=== PATIENT | male | born 1990 | race Caucasian/White ===

== ENCOUNTER 2019-04-07 12:07 | Emergency (ER) | payer MEDICAID, SELFPAY ==
[2019-04-07 12:11] VITALS: BP 134/82; PULSE 102; RESP 16; TEMP 36.8; O2SAT 98
--- NOTE | 2019-04-07 12:11 | ED.GENADUL_ITS ---
Discharge Plan Disposition Patient Disposition: HOME Condition: Stable Discharge Details Chief Complaint: Laceration Clinical Impression: Finger laceration Primary Care Provider: Taqueria Nieto ED Provider: Roseanne Peña Home Meds and New Rx's Prescriptions: New doxycycline hyclate 100 mg tablet 100 mg PO BID 7 Days Qty: 14 RF: 0 Discharge Instructions Instructions: Finger Laceration (ED) Additional Instructions: Take the antibiotics until finished. Be sure to keep wound clean and dry. Cover wound if risk of contamination, otherwise keep open to air to allow wound edges to dry and heal. Return to the emergency department in 7 days for suture removal. Discharge Data Discharge Physician: Roseanne Peña Medical Decision Making 1215 -- 28-year-old male who states he was cutting parts of a tree with a small tree saw when he states he slipped and cut his right second finger with the sharp edge of the saw. He denies any fall or any other injury. Last tetanus 2018. There is a 2 cm flap laceration as well as an additional 1 cm laceration above this on the medial aspect of the right second finger at the PIP joint. There is no pulsatile bleeding, obvious foreign body or fracture. Neurovascularly intact. We will irrigate well and sent for x-ray to rule out foreign body and close with sutures. 1330 --x-ray negative. Wound closed with 7 nylon 4 sutures and covered with topical antibiotic ointment, finger to gauze and finger spent was placed. Due to risk of dirty wound, will send with antibiotics. He is allergic to amoxicillin which causes rash. He is advised on the importance of good wound care and to return to the in 7 days for suture removal. Medical Records Medical records reviewed: Yes I reviewed the patient's medical records. Imaging Data Radiologic Study: Radiologist's impression: XR FINGER RT INDEX CLINICAL HISTORY: s/p chainsaw to R PIP joint, 2cm lac, r/o fx/fb TECHNIQUE: COMPARISON: No exams were available for comparison FINDINGS: Four views were obtained. There is a soft tissue defect at the level of the PIP joint of the index finger. There is no associated fracture. IMPRESSION: HPI General Mode of arrival: ambulatory . Date/Time Provider Initiated Documentation: 04/07/19 12:07 . Limitations to Documentation: no limitations . Information obtained by: patient . History of Present Illness described as moderate, Quality is described as sharp, and is localized to the upper extremity (R 2nd finger laceration). and it has been constant. No relieving factors improve symptom(s), Movement worsens symptoms . Patient notes no other symptoms.. Patient did receive the following treatments prior to arrival, none Related Data Home Medications Medication Instructions Recorded Confirmed doxycycline hyclate 100 mg PO BID 7 Days #14 tab 04/07/19 Previous Rx's Medication Instructions Recorded doxycycline hyclate 100 mg PO BID 7 Days #14 tab 04/07/19 Allergies Allergy/AdvReac Type Severity Reaction Status Date / Time amoxicillin AdvReac Unverified 04/07/19 12:14 Review of Systems All systems reviewed & are unremarkable except as noted in HPI and below PFSH Medical History No significant past medical history (Acute) Surgical History No significant past surgical history (Acute) Social History Smoking/Tobacco Use Status: Never Alcohol Intake: never Substance use type: does not use Do you feel safe at home: Yes Do you feel safe in your relationship?: Yes Exam Const General: cooperative, healthy appearing and no acute distress HENMT Head: normal to inspection Mouth: oral mucosae normal Eyes General: appearance normal, both eyes and all related structures Neck Neck: normal visual inspection Resp Effort & Inspection: normal respiratory effort and able to speak in complete sentences Cardio Rate: regular rate Skin General skin exam: no rashes or lesions noted Neuro General: alert, awake and oriented x3 Motor: muscle tone normal throughout Other: Motor/sensory grossly intact with normal muscle strength of right index finger. Extrem General: full ROM and normal capillary refill Hand/finger images: 1. 2 cm flap laceration as well as a 1 cm laceration directly above this which is well approximated. There is no evidence of obvious tendon injury, foreign body or fracture. Psych Appearance: grossly normal Affect: normal affect Procedures Laceration Laceration 1: Site: hand Side (If applicable): right Size (cm): 3 Description: flap Depth: simple, single layer Local Anesthetic: Lidocaine 1% Pre-repair: wound explored, irrigated extensively and deep structures intact Skin layer closed with: nylon Size (cm): 4-0 Number of sutures: 7 Technique: simple, interrupted
[2019-04-07 13:57] VITALS: BP 122/78; PULSE 71; O2SAT 97
[2019-04-07 14:00] VITALS: BP 126/77; PULSE 65; RESP 16; TEMP 36.8; O2SAT 97
== END 2019-04-07 14:00 | disposition home or self-care (01) ==
PROVIDERS: Emergency Provider Physician Assistant; PCP Internal Medicine
DX: S61.210A Laceration without foreign body of right index finger without damage to nail, initial encounter (principal); W27.0XXA Contact with workbench tool, initial encounter
CPT/HCPCS: 12002; 99283; 73140; 99282

== ENCOUNTER 2019-04-16 11:10 | Emergency (ER) | payer MEDICAID, SELFPAY ==
[2019-04-16 11:15] VITALS: BP 119/77; PULSE 108; RESP 18; TEMP 37.1; O2SAT 98
--- NOTE | 2019-04-16 11:18 | ED.GENADUL_ITS ---
Discharge Plan Disposition Patient Disposition: HOME Condition: Improving Discharge Details Chief Complaint: SutureRem Clinical Impression: Visit for suture removal Primary Care Provider: Taqueria Nieto ED Provider: Cheng Hernandez Home Meds and New Rx's Prescriptions: No Action No Known Home Meds RF: 0 Discharge Instructions Additional Instructions: Once a day soap and water cleanse, pat dry, replace Band-Aid. Return for any acute concerns. Medical Decision Making 28-year-old male presents from home for evaluation of suture removal after repair on April 07. The right index finger is well-appearing, sutures removed by staff and patient placed in dressing. HPI General Mode of arrival: ambulatory . Date/Time Provider Initiated Documentation: 04/16/19 11:16 . Limitations to Documentation: no limitations . Information obtained by: patient . History of Present Illness 28 year old M presents to the emergency department with the chief complaint of Right index finger suture removal, and is localized to the right and upper extremity. Patient reports no radiation. Patient did receive the following treatments prior to arrival, none Related Data Home Medications Medication Instructions Recorded Confirmed Unknown [No Known Home Meds] 04/16/19 04/16/19 Allergies Allergy/AdvReac Type Severity Reaction Status Date / Time amoxicillin AdvReac Unverified 04/16/19 11:17 General Stated Complaint: SutureRem CABRERA: 5 Review of Systems Narrative: No fever, discharge. Some mild persistent decreased sensation on radial aspect of finger [facility] Medical History No significant past medical history (Acute) Social History Smoking/Tobacco Use Status: Never Alcohol Intake: never Substance use type: does not use Do you feel safe at home: Yes Do you feel safe in your relationship?: Yes Exam Narrative Exam Narrative: GEN: awake, alert, oriented 3. Pleasant, well groomed, interactive. HEAD: Normocephalic, atraumatic EXT: Full ROM, right index finger with healing wound, sutures in place. Diminished but present sensation along with distal radial aspect. Cap refill less than 2 seconds. Neuro: Grossly normal neurologic exam, conversant, interactive. Psych: Speech fluent, thoughts congruent, affect normal Course Vital Signs Vital signs: Vital Signs Temperature 37.1 C 04/16/19 11:15 Pulse 108 H 04/16/19 11:15 Respiratory Rate 18 04/16/19 11:15 Blood Pressure 119/77 04/16/19 11:15 Pulse Oximetry 98 04/16/19 11:15 Temperature 37.1 C 04/16/19 11:15 Temperature Source Skin 04/16/19 11:15 Pulse 108 H 04/16/19 11:15 Respiratory Rate 18 04/16/19 11:15 Respiratory Effort Non-Labored 04/16/19 11:17 Blood Pressure 119/77 04/16/19 11:15 Blood Pressure Position Sitting 04/16/19 11:15 Pulse Oximetry 98 04/16/19 11:15 Oxygen Delivery Method Room Air 04/16/19 11:15 Oxygen Flow Rate 0 04/16/19 11:15 Pain Level 0 04/16/19 11:15
== END 2019-04-16 11:28 | disposition home or self-care (01) ==
LOC: ER 11:33
PROVIDERS: Emergency Provider Emergency Medicine; PCP Internal Medicine
DX: S61.210D Laceration without foreign body of right index finger without damage to nail, subsequent encounter (principal); X58.XXXD Exposure to other specified factors, subsequent encounter; Z48.02 Encounter for removal of sutures